=== PATIENT | female | born 1960 | race Caucasian/White ===

== ENCOUNTER → 2024-04-01 08:53 | Outpatient (REF) | payer BC, SELFPAY | LOC: WDC 08:53 | PROVIDERS: ATTENDING PHYSICIAN Nurse Practitioner Adult Health; FAMILY PHYSICIAN Family Medicine | DX: Z12.31 Encounter for screening mammogram for malignant neoplasm of breast (principal) | CPT/HCPCS: 77063; 77067 ==

== ENCOUNTER → 2024-09-25 08:57 | Outpatient (REF) | payer BC, SELFPAY | LOC: RAD 08:57 | PROVIDERS: ATTENDING PHYSICIAN Family Medicine | DX: M54.50 Low back pain, unspecified (principal); R06.2 Wheezing | CPT/HCPCS: 71046; 72110 ==

== ENCOUNTER → 2025-04-06 08:57 | Outpatient (REF) | payer BC, SELFPAY | LOC: WDC 08:57 | PROVIDERS: ATTENDING PHYSICIAN Nurse Practitioner Adult Health; FAMILY PHYSICIAN Family Medicine | DX: Z12.31 Encounter for screening mammogram for malignant neoplasm of breast (principal) | CPT/HCPCS: 77063; 77067 ==